=== PATIENT | male | born 1985 | race Caucasian/White ===

== ENCOUNTER 2020-01-05 17:09 | Emergency (ER) | payer BC, SELFPAY ==
[2020-01-05 17:18] VITALS: BP 152/96; PULSE 85; RESP 16; TEMP 37.3; O2SAT 99
--- NOTE | 2020-01-05 17:34 | ED.GENADULT ---
HPI - General Adult General Chief complaint: Upper Respiratory Infection Stated complaint: Pressure in eyes and forhead Time Seen by Provider: 01/05/20 17:34 Source: patient Mode of arrival: ambulatory Limitations: no limitations History of Present Illness HPI narrative: 34-year-old male patient presents to the [facility] with complaints of congestion for the past week. Denies any fevers or body aches. Denies any ear pain. Patient states he has a lot of pressure behind the eyes as well as his forehead and nasal congestion. Denies any runny nose or stuffy nose. Denies any sore throat or coughing. Denies any chest pain or shortness of breath. Patient denies taking anything for his symptoms. Patient states he did get some Afrin today but was unsure how to use it so he did not use it. Related Data Allergies Allergy/AdvReac Type Severity Reaction Status Date / Time No Known Allergies Allergy Unverified 02/13/16 15:59 Review of Systems Review of Systems: Narrative: CONSTITUTIONAL: Denies fever, chills, or sweats. EYES: Denies visual changes, redness, or discharge. ENT: Denies rhinorrhea, positive congestion, denies sore throat, or otalgia. CARDIOVASCULAR: Denies chest pain, palpitations, or edema. RESPIRATORY: Denies cough or dyspnea. GASTROINTESTINAL: Denies abdominal pain, nausea, vomiting, or diarrhea. GENITOURINARY: Denies dysuria or hematuria. SKIN: Denies rash or itching. MUSCULOSKELETAL: Denies back pain, joint pain, or myalgia. NEUROLOGIC: Denies headache, numbness, or weakness. PSYCHIATRIC: Denies anxiety or depression. PMFSH Comments At the time of my signature I agree with nursing past medical history, surgical, social, and family history. There is no relevant family history pertinent to the presenting complaint. Exam Narrative: Exam Narrative: GENERAL: Well-appearing, well-nourished, and in no acute distress. HEAD: Normocephalic, atraumatic. Tenderness noted to frontal sinuses on palpation EYES: PERRLA and EOMI. ENT: Nares with erythema and edema noted bilaterally, no rhinorrhea or epistaxis. Mucous membranes moist. Posterior pharynx with no erythema, tonsillar edema, exudates or lesions present. Bilateral TMs are clear no erythema or foreign bodies in the canal. NECK: Supple. No lymphadenopathy CHEST: Clear to auscultation. No respiratory distress. HEART: Regular rate and rhythm. No murmur heard. Normal peripheral pulses. ABDOMEN: Soft, nontender, nondistended, normal active bowel sounds. EXTREMITIES: Normal range of motion. No edema. SKIN: Warm, dry, no rash. NEURO: No focal deficits. Alert and oriented x3. Course Vital Signs Vital signs: Vital Signs Temperature 37.3 C 01/05/20 17:18 Pulse Rate 85 01/05/20 17:18 Respiratory Rate 16 01/05/20 17:18 Blood Pressure 152/96 H 01/05/20 17:18 Pulse Oximetry 99 01/05/20 17:18 Temperature 37.3 C 01/05/20 17:18 Pulse Rate 85 01/05/20 17:18 Respiratory Rate 16 01/05/20 17:18 Blood Pressure 152/96 H 01/05/20 17:18 Pulse Oximetry 99 01/05/20 17:18 Vital signs reviewed. The patient has been informed that they may have pre-hypertension or Hypertension based on a BP reading in the department. I recommend that the patient call the primary care provider listed on their discharge instructions or a physician of their choice this week to arrange follow up for further evaluation of possible pre-hypertension or Hypertension Medical Decision Making Differential Diagnosis Differential Diagnosis: Differential diagnosis: Allergic rhinitis, chronic sinusitis, tonsillitis, acute sinusitis, infectious mononucleosis, seasonal influenza, pertussis, diphtheria, meningococcal disease, viral syndrome, viral bronchitis, RSV. Discussed with patient we will go ahead and discharge him home with a daily antihistamine nasal steroid that should help with some of the congestion symptoms. Discussed with him he can also try using [id number] Sudafed for his
== END 2020-01-05 17:47 | disposition home or self-care (01) ==
PROVIDERS: Emergency Provider Nurse Practitioner Family
DX: J01.10 Acute frontal sinusitis, unspecified (principal)
CPT/HCPCS: 99203; G0463

== ENCOUNTER 2021-07-31 12:02 | Emergency (ER) | payer BC, SELFPAY ==
[2021-07-31 12:11] VITALS: BP 163/115; PULSE 102; RESP 16; TEMP 36.4; O2SAT 100
--- NOTE | 2021-07-31 12:25 | ED.URI ---
HPI - URI/Sore Throat General Chief Complaint: Upper Respiratory Infection Stated Complaint: SOB/BUBLING SOUND FROM THROAT Time Seen by Provider: 07/31/21 12:26 Source: patient and RN notes reviewed Mode of arrival: ambulatory Limitations: no limitations History of Present Illness HPI Narrative: 36 yo male presents to the [facility] with C/O SOB and gurgling sound from his throat, Only when he lays down. Denies throat, chest pain abdominal pain. No fevers. Symptoms started Friday night Denies PMH or Surgical HX. 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 Related Data Allergies Allergy/AdvReac Type Severity Reaction Status Date / Time No Known Allergies Allergy Unverified 02/13/16 15:59 Review of Systems Review of Systems: All systems reviewed & are unremarkable except as noted in HPI and below Constitutional: Constitutional: Reports no additional constitutional complaints, Denies chills and Denies fever(s) Eyes: Eyes: Reports no additional eye complaints ENT: Reports system reviewed and no additional complaints, except as documented, Denies vertigo, Denies dizziness, Denies nasal congestion and Denies sore throat Cardiovascular: Cardiovascular: Reports no additional cardiovascular complaints and Denies chest pain Respiratory: Respiratory: Reports as per HPI, Reports cough, Reports dyspnea and Denies wheezing Gastrointestinal: Gastrointestinal: Reports no additional gastrointestinal complaints, Denies abdominal pain, Denies nausea and Denies vomiting Musculoskeletal: Musculoskeletal: Reports no additional musculoskeletal complaints Integumentary/Breasts: Skin/Breast: Reports system reviewed and no additional complaints, except as docu Neurologic: Reports system reviewed and no additional complaints, except as documented Psychiatric: Psychiatric: Reports no additional psychiatric complaints Allergic/Immunologic: Allergic/Immunologic: Reports no additional allergic/immunologic complaints, Denies lip swelling, Denies throat swelling, Denies tongue swelling and Denies wheezing [facility] Past Medical History Medical History (Updated 07/31/21 @ 15:36 by Lisa Cai) No significant medical problems Surgical History Surgical History (Updated 07/31/21 @ 15:36 by Lisa Cai) No history of previous surgery Social History Social History (Updated 07/31/21 @ 15:36 by Lisa Cai) Smoking status: Never smoker Alcohol intake: former Substance use: never Living arrangements: with family Occupation/Education: occupation Gender identity (if verbalized by the patient): Male Comments At the time of my signature, I reviewed and agree with the nursing past medical, surgical, social, and family history. There is no relevant family history pertinent to the patient complaint. Exam Const: General: healthy appearing, no acute distress and alert Nutritional Appearance: well nourished Orientation/consciousness: patient oriented x3 Limitations: no limitations HENMT: Head: normal to inspection Ears: external ears normal, TM's normal bilaterally and EAC's normal General nose exam: Normal external nose present and Normal nasal mucous membranes and turbinates present Face and sinus: normal facial exam, sinuses nontender and face symmetric Mouth: Yes Normal oral and palatal mucosa present, Yes lip normal and Yes tongue normal Throat: tonsils normal, uvula midline and postnasal drainage Eyes: Conjunctivae: conjunctivae normal Pupils: Equal, round and reactive pupils present Direct Ophthalmoscopy: no photophobia Neck: Neck: normal visual inspection, no lymphadenopathy and no meningeal signs Chest: Chest palpation & inspection: normal inspection of the chest Resp: Effort & Inspection: normal respiratory effort and no use of accessory muscles Auscultation: clear to auscultation bilaterally, no crackles, no rales, no rhonchi and no wheezes Cardio: Rate: regular rate Rhythm: regular rhythm GI: GI Palp: Yes Soft to palpation and No Ten
== END 2021-07-31 12:57 | disposition home or self-care (01) ==
PROVIDERS: Emergency Provider Nurse Practitioner
DX: R09.82 Postnasal drip (principal)
CPT/HCPCS: 99213; G0463

== ENCOUNTER 2021-08-08 19:03 | Inpatient (IN) | payer BC, SELFPAY ==
--- NOTE | ~2021-08-08 | XR_ITS ---
EXAMINATION: XR chest 2V DATE: 08/08/2021 19:34 INDICATION: Shortness of breath and cough TECHNIQUE: PA and lateral views of the chest are obtained. COMPARISON: 11/24/2006 FINDINGS: The lungs are free of acute opacities. There is no pleural effusion or pneumothorax. The ca rdiac silhouette is enlarged. The visualized bones and soft tissues are unremarkable. IMPRESSION: 1. Enlargement of the cardiac silhouette which may be due to cardiomegaly and/or pericardial effusion . Reviewed, dictated and finalized at location A. IMPRESSION: 1. Enlargement of the cardiac silhouette which may be due to cardiomegaly and/o r pericardial effusion.
[2021-08-08 19:13] VITALS: BP 159/120; PULSE 109; RESP 14; TEMP 36.8; O2SAT 100
--- NOTE | 2021-08-08 19:13 | ECG_ITS ---
Measurements Intervals [place] Rate: 107 P: 77 NC: 172 QRS: -76 QRSD: 121 T: 83 QT: 352 QTc: 472 Interpretive Statements SINUS TACHYCARDIA POSSIBLE LEFT ATRIAL ENLARGEMENT LEFT ANTERIOR FASCICULAR BLOCK LEFT VENTRICULAR HYPERTROPHY AND ST-T CHANGE CANNOT RULE OUT SEPTAL INFARCT, AGE INDETERMINATE ABNORMAL ECG Electronically Signed On 08-08-2021 20:16:21 CDT by Thien Malik D.O.
[2021-08-08 19:37] LABS: Basophils Percent Auto 0.4 % (0.2-1.2); Eosinophils Absolute Auto 0.2 K/mm3 (0-0.3); Eosinophils Percent Auto 1.4 % (0-4.4); Hematocrit 47.4 % (42.0-52.0); Hemoglobin 15.6 g/dL (14.0-18.0); Immature Granulocyte Absolute 0.03 K/mm3 (0.00-0.031); Immature Granulocyte Percent A 0.3 % (0-0.5); Lymphocytes Absolute Auto 3.54 K/mm3 (0.9-3.2); Lymphocytes Percent Auto 31.1 % (18.3-44.2); Mean Corpuscular HGB Conc 32.9 g/dl (32-36); Mean Corpuscular Hemoglobin 29.6 pg (26-34); Mean Corpuscular Volume 89.9 fl (80-100); Mean Platelet Volume 10.7 fl (7.4-10.4); Monocytes Absolute Auto 0.8 K/mm3 (0.1-0.6); Monocytes Percent Auto 6.8 % (2.6-8.5); Neutrophils Absolute Auto 6.8 K/mm3 (1.3-6.7); Platelet Count Result 280 k/mm3 (150-375); Red Blood Count 5.27 M/mm3 (4.6-6.20); Red Cell Distribution Width 13.1 % (11.5-14.5); White Blood Count 11.4 K/mm3 (4.5-10.0)
[2021-08-08 19:46] LABS: INR 1.2; Partial Thromboplastin Time 29.4 SECONDS (22.3-36.8); Prothrombin Time 15.1 Seconds (11.1-14.7)
[2021-08-08 19:48] LABS: Anion Gap 12 mmol/L (8-16); Blood Urea Nitrogen 18 mg/dL (9-20); Calcium 8.9 mg/dL (8.4-10.2); Carbon Dioxide 25 mmol/L (22-30); Chloride 102 mmol/L (98-107); Estimated CRCL calculation 100 ml/min; Estimated Glomerular Filt Rate > 60; Glucose 147 mg/dL (65-110); Potassium 4.4 mmol/L (3.4-5.0); Sodium 139 mmol/L (137-145)
[2021-08-08 19:59] LABS: NT Pro B Type Natriuretic Pept 6160 pg/mL (5-100); Troponin I 0.027 ng/mL (0.000-0.034)
[2021-08-08 21:27] VITALS: BP 163/125; PULSE 107; RESP 24; O2SAT 98
--- NOTE | 2021-08-08 21:32 | ED.GENADULT ---
HPI - General Adult General Chief complaint: Unspecified Stated complaint: cough, feet swelling, N/V Time Seen by Provider: 08/08/21 21:14 Source: patient and RN notes reviewed Mode of arrival: ambulatory Limitations: no limitations History of Present Illness HPI narrative: Patient is 36 years old white male presented to the ED with swelling of the feet, ankles, dry cough and shortness of breath on exertion over the last 7 days. Patient denies any fever, chills, nausea, vomiting, chest pain. Patient denies any Covid infection or Covid vaccination. Patient uses meth every now and then. Last use was at least 4 months ago. 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 Patient denies any symptoms of viral infection for years. Related Data Allergies Allergy/AdvReac Type Severity Reaction Status Date / Time No Known Allergies Allergy Unverified 02/13/16 15:59 Review of Systems Review of Systems: CONSTITUTIONAL: Denies fever, chills, or sweats. EYES: Denies visual changes, redness, or discharge. ENT: Denies rhinorrhea, congestion, sore throat, or otalgia. CARDIOVASCULAR: Denies chest pain, palpitations, or edema. RESPIRATORY: Denies cough or dyspnea. GASTROINTESTINAL: Denies abdominal pain, nausea, vomiting, or diarrhea. GENITOURINARY: Denies dysuria or hematuria. SKIN: Denies rash or itching. MUSCULOSKELETAL: Denies back pain, joint pain, or myalgia. NEUROLOGIC: Denies headache, numbness, or weakness. PSYCHIATRIC: Denies anxiety or depression. PMFSH Past Medical History Medical History No significant medical problems Surgical History Surgical History No history of previous surgery Social History Social History Smoking status: Never smoker Alcohol intake: former Substance use: never Gender identity (if verbalized by the patient): Male Exam Narrative: General appearance: Well-developed, well-nourished Skin: Normal color, 1+ edema lower extremity bilaterally up to the mid lower legs Head: Normocephalic, nontraumatic Eyes: Clear conjunctiva ENT: Oropharynx normal, ears normal, nose normal Neck: Supple, nontender Chest and respiratory: Airway patent, no respiratory distress, no accessory muscle use Heart: Tachycardia Abdomen: Soft, nontender, no organomegaly, quiet bowel sounds Vascular: Normal peripheral pulses, normal capillary refill. Musculoskeletal: Normal range of motion, nontender back Neurologic: Alert and oriented ?3, OLIVE GRADER is normal as tested, no gross motor deficit Course Consultations Consultation #1: Dr. Kay Date: 08/08/21 Time: 22:12 Time: 22:12 Vital Signs Vital signs: Vital Signs Temperature 36.8 C 08/08/21 19:13 Pulse Rate 109 H 08/08/21 19:13 Respiratory Rate 14 08/08/21 19:13 Blood Pressure 159/120 H 08/08/21 19:13 Pulse Oximetry 100 08/08/21 19:13 Temperature 36.8 C 08/08/21 19:13 Pulse Rate 105 H 08/08/21 22:42 Respiratory Rate 20 08/08/21 22:42 Blood Pressure 159/117 H 08/08/21 22:42 Pulse Oximetry 96 08/08/21 22:42 Medical Decision Making MDM Narrative Medical decision making narrative: Patient presents with shortness of breath and leg edema. Differential diagnosis as below. Labs, EKG, chest x-ray ordered. Work-up showed that the patient have cardiomegaly, congestive heart failure. Patient is methamphetamine user, last use was over 4 months ago. Patient also work with heavy metals which could have something to do with his cardiomegaly or idiopathic. Patient blood pressure
[2021-08-08 21:33] LABS: Alanine Aminotransferase 54 U/L (4-50); Albumin Level 4.3 g/dL (3.5-5.1); Alkaline Phosphatase 60 U/L (38-126); Aspartate Amino Transferase 30 U/L (17-59); Bilirubin,Total 0.9 mg/dL (0.2-1.3)
[2021-08-08] MEDS: FUROSEMIDE INJ 100 MG/10 ML VIAL 80 MG IV PUSH (22:05)
[2021-08-08] MEDS: NITROGLYCERIN OINTMENT 1 INCH DOSE TRANSDERM (22:07)
[2021-08-08 22:42] VITALS: BP 159/117; PULSE 105; RESP 20; O2SAT 96
[2021-08-08 22:51] LABS: CRP 1.1 mg/dL (<1.0)
[2021-08-08 22:55] LABS: Amphetamine Screen Urine Positive (Negative); Barbiturate Screen Urine Negative (Negative); Benzodiazepines Screen Urine Negative (Negative); Cannabinoid Screen Urine Negative (Negative); Cocaine Screen Urine Negative (Negative); Methadone Screen Urine Negative (Negative); Opiate Screen Urine Negative (Negative); Phencyclidine Screen Urine Negative (Negative)
[2021-08-08 23:03] LABS: Add Urine Microscopic? YES; Appearance Urine Clear (Clear); Bilirubin Urine Negative (Negative); Blood Urine Negative (Negative); Color Urine Straw (Yellow); Glucose Urine UA Negative (Negative); Ketones Urine Negative (Negative); Leukocyte Esterase Ur Negative LEU/UL (Negative); Nitrate Urine Negative (Negative); Protein Urine Negative (Negative); RBC Urine 0-2 /hpf (0-2); Specific Grav Ur 1.008 (1.001-1.035); WBC Urine 0-3 /hpf
[2021-08-08 23:04] LABS: Erythrocyte Sedimentation Rate 4 mm/hr (0-20)
[2021-08-08 23:18] VITALS: BMI 28.5
--- NOTE | 2021-08-08 23:36 | PM.IMHP ---
H&P: HPI History of Present Illness Date/Time: 08/08/21 23:36 Chief Complaint: Shortness of breath Narrative: This is a 36-year-old male with no significant past medical history former smoker, former alcohol abuse, uses methamphetamines, patient presented to the emergency room due to swelling of his feet shortness of breath and dry cough PND and orthopnea for the last week and such however he denies any chest pain ,any dizziness, any nausea ,any vomiting, any abdominal pain ,any pounding of the chest, no fevers no rigors no chills no sputum production. Preliminary workup was significant for a brain natriuretic peptide up beltran 6000, a positive urine tox for amphetamines a chest x-ray with enlarged cardiac silhouette and and ECG with changes but no previous for comparison. Patient has been placed in observation for further evaluation and treatment. Review of Systems Review of Systems: Bilateral lower extremity ankle swelling shortness of breath dry cough PND and orthopnea Constitutional: Constitutional: Denies chills, Denies fatigue, Denies fever(s), Denies lethargy, Denies night sweats and Denies weakness Eyes: Eyes: Denies change in vision ENT: Denies dysphagia, Denies dizziness, Denies nasal congestion, Denies nasal discharge and Denies nasal obstruction Cardiovascular: Cardiovascular: Denies chest pain, Denies chest pain at rest, Denies rapid heart rate, Reports pedal edema, Denies irregular heart rhythm, Denies claudication, Denies lightheadedness, Denies radiating jaw, neck or arm pain, Denies palpitations, Reports dyspnea, Reports dyspnea on exertion, Reports orthopnea and Reports paroxysmal nocturnal dyspnea Respiratory: Respiratory: Reports cough Gastrointestinal: Gastrointestinal: Denies abdominal pain, Denies dyspepsia, Denies heartburn, Denies diarrhea and Denies vomiting Genitourinary: Genitourinary: Reports no additional male genitourinary complaints Musculoskeletal: Musculoskeletal: Reports no additional musculoskeletal complaints Integumentary/Breasts: Skin/Breast: Reports system reviewed and no additional complaints, except as docu Neurologic: Reports system reviewed and no additional complaints, except as documented Psychiatric: Psychiatric: Reports no additional psychiatric complaints Endocrine: Endocrine: Reports no additional endocrine complaints Hematologic/Lymphatic: Hematologic/Lymphatic: Reports no additional hematologic/lymphatic complaints Allergic/Immunologic: Allergic/Immunologic: Reports no additional allergic/immunologic complaints PMFSH Past Medical History Medical History No significant medical problems Surgical History Surgical History No history of previous surgery Social History Social History Smoking status: Never smoker Alcohol intake: never Substance use: current Substance use type: amphetamines Other substance usage details: Pt states he doesnt have a problem , tox screen positive for amphetamines Gender identity (if verbalized by the patient): Male Spiritual care concerns: No Meds Home Medications and Allergies Home Medications Medication Instructions Recorded Confirmed Type No Home Medications 08/09/21 08/09/21 History Allergies Allergy/AdvReac Type Severity Reaction Status Date / Time No Known Allergies Allergy Verified 08/09/21 01:20 Vital Signs Vital Signs - 24 hr 08/08/21 19:13 08/08/21 21:27 08/08/21 22:42 Temperature 98.2 F Pulse Rate 109 H 107 H 105 H Respiratory Rate 14 24 H 20 Blood Pressure 159/120 H 163/125 H 159/117 H Pulse Oximetry 100 98 96 Exam Narrative: Laying in gurney Const: General: cooperative, comfortable, no acute distress, well developed, alert, awake and other (Well-appearing) Nutritional Appearance: average body habitus Orientation/consciousne
[2021-08-08] MEDS: FUROSEMIDE INJ 40 MG/4 ML VIAL IV PUSH (23:55)
[2021-08-08] MEDS: MORPHINE SULFATE (*CRX) 2 MG/ML INJ 1 MG IV PUSH (23:55)
[2021-08-09] VITALS (14 sets, daily range): BP systolic 135–167; BP diastolic 94–131; PULSE 87–107; RESP 14–28; TEMP 35.7–36.9; O2SAT 96–98
[2021-08-09 01:20] LABS: Anion Gap 10 mmol/L (8-16); Blood Urea Nitrogen 18 mg/dL (9-20); Calcium 9.1 mg/dL (8.4-10.2); Carbon Dioxide 33 mmol/L (22-30); Chloride 97 mmol/L (98-107); Estimated CRCL calculation 92 ml/min; Estimated Glomerular Filt Rate > 60; Glucose 192 mg/dL (65-110); Magnesium 2.3 mg/dL (1.6-2.3); Phosphorus 4.5 mg/dL (2.5-4.5); Potassium 3.8 mmol/L (3.4-5.0); Sodium 140 mmol/L (137-145)
[2021-08-09 01:32] LABS: Troponin I 0.026 ng/mL (0.000-0.034)
[2021-08-09] MEDS: LORazepam INJ (*CRX) 2 MG/ML VIAL 1 MG IV PUSH ×2 (01:41→12:05)
[2021-08-09] MEDS: diphenhydrAMINE HCl INJ 50 MG/ML VIAL 25 MG IV PUSH ×2 (01:41→12:05)
--- NOTE | 2021-08-09 06:00 | ECG_ITS ---
Measurements Intervals [place] Rate: 87 P: 64 MS: 168 QRS: -73 QRSD: 126 T: 65 QT: 423 QTc: 511 Interpretive Statements SINUS RHYTHM LEFT ATRIAL ENLARGEMENT LEFT ANTERIOR FASCICULAR BLOCK LEFT VENTRICULAR HYPERTROPHY ABNORMAL ECG Electronically Signed On 08-09-2021 6:51:24 CDT by Thien Malik D.O.
--- NOTE | 2021-08-09 06:00 | ECHO_ITS ---
Patient Info Name: Omar Barahona Age: 36 years : 1985 Gender: Male Ht: 75 in Wt: 227 lbs BSA: 2.35 m2 HR: 97 bpm BP: 150 / 94 mmHg Technical Quality: Good Exam Date: 08/09/2021 9:20 AM Exam Location: [facility] Patient Status: Inpatient Admit Date: 08/08/2021 Staff Ordering Physician: Nicholas Fink MD Gasoline Engine Inspector: Saima Mercado RDCS Attending Provider: Ryan Fuentes MD Exam Type: CA echo dop color flow w con Study Info Indications I42.9 - Cardiomyopathy, unspecified Complete two-dimensional, color flow and Doppler transthoracic echocardiogram is performed with contrast to opacify the left ventricle and to improve the deliniation of the left ventricle endocardial borders. Contrast/Agitated Saline Contrast/Ag. Saline: Definity Amount: 2.00 ml Administered By: Renata Monroy RN Existing IV Access: Yes IV Access Condition: patent with no signs of infiltration Summary 1. Left ventricular systolic function is severely reduced, estimated at 15-20%. 2. Left ventricular chamber dimension is mildly enlarged. 3. The left ventricular diastolic function is grade III diastolic dysfunction. 4. E/e' 35.00 is elevated. 5. Right ventricular chamber dimension is mildly enlarged. 6. Right ventricular systolic function is reduced. 7. Left atrial chamber dimension is mildly enlarged. 8. Right atrial chamber dimension is mildly enlarged. 9. There is mild aortic valve sclerosis. 10. There is mild aortic valve regurgitation. 11. There is mild mitral valve regurgitation. 12. There is mild tricuspid valve regurgitation. 13. Mild pulmonary hypertension, estimated pulmonary arterial systolic pressure is 45 mmHg. Left Ventricle Left ventricular chamber dimension is mildly enlarged. Left ventricular systolic function is severely reduced, estimated at 15-20%. There is no increased left ventricular wall thickness. Left ventricular septal wall motion is normal. The left ventricular diastolic function is grade III diastolic dysfunction. E/e' 35.00 is elevated. Global longitudinal strain is abnormal at -4 %. Right Ventricle Right ventricular chamber dimension is mildly enlarged. Right ventricular systolic function is reduced. Left Atria Left atrial chamber dimension is mildly enlarged. Right Atria Right atrial chamber dimension is mildly enlarged. Atrial Septum Intact interatrial septum visualized by color flow imaging. Aortic Valve The aortic valve is trileaflet. There is mild aortic valve sclerosis. There is no aortic valve stenosis. There is mild aortic valve regurgitation. Pulmonic Valve The pulmonic valve is normal. There is no pulmonic valve stenosis. There is no pulmonic regurgitation. Mitral Valve The mitral valve has normal leaflets. There is no mitral valve stenosis. There is mild mitral valve regurgitation. Tricuspid Valve The tricuspid valve leaflets are normal. There is no significant tricuspid valve stenosis. There is mild tricuspid valve regurgitation. Mild pulmonary hypertension, estimated pulmonary arterial systolic pressure is 45 mmHg. Pericardium/Pleural The pericardium appears normal. There is no pericardial effusion. Inferior Vena Cava Normal inferior vena cava with <50% collapse upon inspiration consistent with elevated right atrial pressure, 10 mmHg. Aorta The aortic root size at the sinus of Valsalva is normal. The prox ascending a
[2021-08-09] MEDS: NITROGLYCERIN OINTMENT 1 INCH DOSE TRANSDERM ×4 (06:51→23:55)
[2021-08-09] MEDS: FUROSEMIDE INJ 40 MG/4 ML VIAL 20 MG IV PUSH (08:48)
--- NOTE | 2021-08-09 09:26 | PM.CNCAR ---
Assessment and Plan Assessment and plan (1) Congestive heart failure due to cardiomyopathy: Code(s): I50.9 - Heart failure, unspecified; I42.9 - Cardiomyopathy, unspecified <BAL Quintana - Last Filed: 08/09/21 12:42> Status: Acute <BAL Quintana - Last Filed: 08/09/21 12:42> Assessment and Plan: Presenting with symptoms of shortness of breath, lower extremity swelling. Chest Xray showed enlarged cardiac silhouette, cardiomegaly vs. pericardial effusion. NT-proBNP elevated at 6160. He has been diuresed with IV lasix and has experienced improvement in symptoms. Suspect dilated CMY, possible right sided failure as well likely caused by history of alcohol abuse and current methamphetamine use Echo pending Continue diuresis with 20mg IV furosemide b.i.d. Further recommendations to follow review of echo results <BAL Quintana - Last Filed: 08/09/21 12:42> (2) Hypertension: Qualifiers: Hypertension type: unspecified Qualified Code(s): I10 - Essential (primary) hypertension <BAL Quintana - Last Filed: 08/09/21 12:42> Code(s): I10 - Essential (primary) hypertension <BAL Quintana - Last Filed: 08/09/21 12:42> Status: Acute <BAL Quintana - Last Filed: 08/09/21 12:42> Assessment and Plan: Above goal. Will likely add antihypertensives with HF medical regimen. Further recommendations to follow. <BAL Quintana - Last Filed: 08/09/21 12:42> (3) Methamphetamine use: Code(s): F15.10 - Other stimulant abuse, uncomplicated <BAL Quintana - Last Filed: 08/09/21 12:42> Status: Acute <BAL Quintana - Last Filed: 08/09/21 12:42> Assessment and Plan: He was counseled on avoidance of amphetamines and other illicit drugs <BAL Quintana - Last Filed: 08/09/21 12:42> Additional Plan Addendum Patient seen and examined, chart reviewed. DIAL for 2 weeks with nocturnal cough and lower extremity edema. Untreated hypertension since he was in his 20s. Methamphetamine use. Exam shows a gallop rhythm and mild peripheral edema. Has four-chamber cardiac enlargement by echo with EF 15-20%. Chest x-ray was personally reviewed, showed cardiomegaly and surprisingly no pulmonary vascular congestion. EKG personally reviewed showed sinus rhythm with LVH and left anterior hemiblock. Agree with nurse practitioner Kalani Torres's assessment and plan. Reviewed causes of cardiomyopathy (untreated hypertension, methamphetamine use, viral/idiopathic. (No family history of cardiomyopathy, doubt CAD.) wiith patient. Counseled patient on treatment, risk of sudden cardiac , Life Vest, effects of methamphetamines and other drugs on the heart, etc. patient states he will not use methamphetamines any longer. Quintin Monte MD <Yesi Monte MD - Last Filed: 08/09/21 17:29> History of Present Illness History of Present Illness Consult date/time: 08/09/21 09:26 <BAL Quintana - Last Filed: 08/09/21 12:42> Requesting physician: Ryan Fuentes MD <BAL Quintana - Last Filed: 08/09/21 12:42> Reason For Visit: CHF, hypertension <BAL Quintana - Last Filed: 08/09/21 12:42> Narrative: Mr. Barahona is a 36-year-old male who I am seeing at the request of Dr. Fuentes for congestive heart failure. This is a patient with no significant medical history who presented to the emergency department yesterday evening for evaluation of a 2 week complaint of shortness of breath. Patient says that 2 Sundays ago he had an acute onset of shortness of breath. He says that his breathing improved spontaneously throughout the week therefore he did not think much of it. His shortness of breath returned as well as what he describes as some crackling sounds in his throat and a productive cough - he proceeded to an urgent care and was diagnose
[2021-08-09] MEDS: PERFLUTREN LIPID MICROSPHERES 1.5 ML VIAL DILUTED TO 10 ML TOTAL VOLUME (11:57)
--- NOTE | 2021-08-09 14:17 | PM.IMPN ---
Progress Note: A&P Assessment and Plan (1) Congestive heart failure of unknown etiology: Code(s): I50.9 - Heart failure, unspecified Status: Acute Assessment and Plan: Admit to chest pain center Echocardiogram in the morning Rule out [place] with serial troponins Cardiology consult Aggressive diuresis Monitor intake and output 08/09 Interval history: patient is a 36-year-old male with history of alcohol abuse and amphetamine presented emergency depart with complaint of shortness of breath and chest apin and was found to have BNP of 6,160 patient is seen by Cardiology had a echo showed severe reduced ejection fraction of 20%, started the patient on Entresto, spironolactone and Coreg patient also been diuresed with IV Lasix, patient will need LifeVest upon discharge, patient is positive for amphetamine and was quite agitated and is given Ativan and currently somnolent unable to provide any review of symptom, once clinically stable will have a PT OT evaluate the patient and further recommendation to follow (2) Methamphetamine use: Code(s): F15.10 - Other stimulant abuse, uncomplicated Status: Acute Assessment and Plan: Patient has been advised about substance use cessation He has expressed understanding Supportive care Subjective Date/time seen: 08/09/21 14:17 This is a 36-year-old male with no significant past medical history former smoker, former alcohol abuse, uses methamphetamines, patient presented to the emergency room due to swelling of his feet shortness of breath and dry cough PND and orthopnea for the last week and such however he denies any chest pain ,any dizziness, any nausea ,any vomiting, any abdominal pain ,any pounding of the chest, no fevers no rigors no chills no sputum production. Preliminary workup was significant for a brain natriuretic peptide up beltran 6000, a positive urine tox for amphetamines a chest x-ray with enlarged cardiac silhouette and and ECG with changes but no previous for comparison. Patient has been placed in observation for further evaluation and treatment. 08/09 Interval history: patient is a 36-year-old male with history of alcohol abuse and amphetamine presented emergency depart with complaint of shortness of breath and chest apin and was found to have BNP of 6,160 patient is seen by Cardiology had a echo showed severe reduced ejection fraction of 20%, started the patient on Entresto, spironolactone and Coreg patient also been diuresed with IV Lasix, patient will need LifeVest upon discharge, patient is positive for amphetamine and was quite agitated and is given Ativan and currently somnolent unable to provide any review of symptom, once clinically stable will have a PT OT evaluate the patient and further recommendation to follow Review of Systems Review of Systems: ROS unobtainable: Yes unobtainable due to medical condition Exam Narrative: Patient is comfortable, NAD HEENT: eyes are clear and none icteric LUNGS:Normal respiratory effort ABD: distended Lower extremities: edema SKIN: nonjaundiced Neuro: somnolent. Objective Data Vital Signs Vital Signs: Vital Signs - 24 hr 08/08/21 19:13 08/08/21 21:27 08/08/21 22:42 Temperature 98.2 F Pulse Rate 109 H 107 H 105 H Respiratory Rate 14 24 H 20 Blood Pressure 159/120 H 163/125 H 159/117 H Pulse Oximetry 100 98 96 08/09/21 00:00 08/09/21 02:00 08/09/21 04:00 Temperature 97.6 F 97.6 F Pulse Rate 102 H 88 87 Respiratory Rate 17 28 H Blood Pressure 162/95 H 150/94 H Pulse Oximetry 96 96 08/09/21 06:00 08/09/21 08:00 08/09/21 10:00 Temperature 98.5 F Pulse Rate 91 94 105 H Respiratory Rate 20 Blood Pressure 135/113 H Pulse Oximetry 97 Intake/Output Intake/Output: Intake & Output 08/06/21 08/07/21 08/08/21 08/09/21 23:59 23:59 23:59 23:59 Intake Total 1460 Output Total 1500 4000 Balance -1500 -2540 Meds/Results Medications: Active Medications Generic N
--- NOTE | 2021-08-09 16:28 | PC.NURSE ---
Patient report received from Renata Leroy RN. All questions answered and care of patient assumed.
--- NOTE | 2021-08-09 16:45 | PC.NURSE ---
Patient resting comfortably in bed with no complaints. Denies leg pain/cramps at this time. Continuing to eat dinner. VSS although diastolic blood pressure is high. Patient is asking to go outside to see and children. Patient educated on visitor policy. He voices understanding. Patient provided education on CHF and need for LifeVest. Patient agreeable to LifeVest. Will continue to monitor.
--- NOTE | 2021-08-09 18:26 | PC.NURSE ---
Dr. Malone notified of elevated BP. At time of notification BP 162/118. Order received to give 2100 dose of Coreg now. This applies to the evening dose on 08/09/21 only. Pt denies complaints at this time. Appears to be resting comfortably.
--- NOTE | 2021-08-09 19:09 | PC.NURSE ---
Patient report given to ORLANDO Munoz. All questions answered and care of patient transferred.
[2021-08-09] MEDS: SACUBITRIL/VALSARTAN 24-26 MG TABLET 1 TAB PO (20:36)
[2021-08-09] MEDS: carvediloL 3.125 MG TABLET PO (20:37)
[2021-08-10] VITALS (19 sets, daily range): BP systolic 122–157; BP diastolic 73–122; PULSE 82–159; RESP 11–26; TEMP 35.6–37.1; O2SAT 94–98
[2021-08-10] MEDS: NITROGLYCERIN OINTMENT 1 INCH DOSE TRANSDERM (05:32)
[2021-08-10 06:37] LABS: Anion Gap 9 mmol/L (8-16); Blood Urea Nitrogen 18 mg/dL (9-20); Calcium 8.6 mg/dL (8.4-10.2); Carbon Dioxide 23 mmol/L (22-30); Chloride 105 mmol/L (98-107); Estimated CRCL calculation 109 ml/min; Estimated Glomerular Filt Rate > 60; Glucose 185 mg/dL (65-110); Potassium 4.4 mmol/L (3.4-5.0); Sodium 137 mmol/L (137-145)
[2021-08-10] MEDS: SACUBITRIL/VALSARTAN 24-26 MG TABLET 1 TAB PO ×2 (08:21→20:00)
[2021-08-10] MEDS: carvediloL 3.125 MG TABLET PO (08:21)
[2021-08-10] MEDS: FUROSEMIDE INJ 40 MG/4 ML VIAL 20 MG IV PUSH ×2 (08:22→20:01)
[2021-08-10] MEDS: SPIRONOLACTONE 25 MG TABLET PO (08:55)
--- NOTE | 2021-08-10 09:44 | ECG_ITS ---
Measurements Intervals [place] Rate: 155 P: VT: 0 QRS: -76 QRSD: 118 T: 83 QT: 307 QTc: 494 Interpretive Statements SUPRAVENTRICULAR TACHYCARDIA, CONSIDER ATRIAL FLUTTER LEFT AXIS DEVIATION INCOMPLETE LEFT BUNDLE BRANCH BLOCK CANNOT RULE OUT SEPTAL INFARCT, AGE INDETERMINATE INFERIOR INFARCT, AGE INDETERMINATE BORDERLINE ST-T WAVE ABNORMALITY- HIGH LATERAL LEADS ABNORMAL ECG Electronically Signed On 08-10-2021 17:01:18 CDT by Thien Malik D.O.
[2021-08-10] MEDS: METOPROLOL TARTRATE INJ 5 MG/5 ML VIAL IV PUSH ×3 (09:59→14:40)
--- NOTE | 2021-08-10 10:23 | PM.PNCARD ---
Progress Note: A&P Assessment and Plan (1) Congestive heart failure due to cardiomyopathy: Code(s): I50.9 - Heart failure, unspecified; I42.9 - Cardiomyopathy, unspecified Status: Acute Assessment and Plan: Presenting with symptoms of shortness of breath, lower extremity swelling. Chest Xray showed enlarged cardiac silhouette, cardiomegaly vs. pericardial effusion. NT-proBNP elevated at 6160. He has been diuresed with IV lasix and has experienced improvement in symptoms. Severe dilated cardiomyopathy with an EF of 15-20%, grade 3 diastolic dysfunction. He has right ventricular dysfunction as well. Continue Entresto 24/ b.i.d. Continue spironolactone 25 mg daily Increase carvedilol to 6.25 mg b.i.d.. Transition from furosemide 20 mg IV b.i.d. to 40 mg p.o. b.i.d. Monitor renal function and electrolytes with daily BMP. Goals K 4.0, Mg 2.0 LifeVest has been ordered. Per [facility], patient will receive his LifeVest this evening Recurrence of atrial flutter this afternoon. ? need for anticoagulation. Will observe overnight on telemetry. (2) Hypertension: Qualifiers: Hypertension type: unspecified Qualified Code(s): I10 - Essential (primary) hypertension Code(s): I10 - Essential (primary) hypertension Status: Acute Assessment and Plan: Has been somewhat better controlled since initiating GDMT for his heart failure. Increase carvedilol to 6.25 mg b.i.d. today. (3) Methamphetamine use: Code(s): F15.10 - Other stimulant abuse, uncomplicated Status: Acute Assessment and Plan: He was counseled on avoidance of amphetamines and other illicit drugs. He states that he is going to remain abstinent from drugs and alcohol. Subjective Date/time seen: 08/10/21 10:23 cardiology follow-up for heart failure Date of service 08/10/2021: Had an episode of atrial flutter earlier this morning with a rate in the 150s. This happened after having a difficult conversation with his mom on the phone that made him very upset. He was asymptomatic with this. Was given 2 doses of IV Lopressor and now is in sinus rhythm with a rate in the 80s. He is feeling well today. Has a cough but denies shortness of breath. Review of Systems Review of Systems: All systems reviewed & are unremarkable except as noted in HPI and below Constitutional: Constitutional: Denies excessive sweating, Denies fatigue, Denies headache(s), Denies lethargy and Denies weakness Eyes: Eyes: Denies change in vision ENT: Reports Normal hearing present, Denies headache(s) and Reports nasal discharge Cardiovascular: Cardiovascular: Denies chest pain, Reports pedal edema, Reports leg edema, Denies lightheadedness, Denies palpitations, Reports dyspnea and Reports dyspnea on exertion Respiratory: Respiratory: Reports chest congestion, Reports cough, Reports dyspnea and Reports dyspnea on exertion Gastrointestinal: Gastrointestinal: Denies abdominal pain, Denies constipation, Denies diarrhea and Reports nausea Genitourinary: Genitourinary: Denies dysuria Musculoskeletal: Musculoskeletal: Denies back pain and Denies numbness Integumentary/Breasts: Skin/Breast: Denies unusual bruising Neurologic: Reports Normal hearing present, Denies confusion, Denies headache(s), Denies numbness and Denies weakness Psychiatric: Psychiatric: Denies anxiety, Denies confusion and Denies depression Endocrine: Endocrine: Denies excessive sweating, Denies fatigue, Denies flushing and Denies palpitations Hematologic/Lymphatic: Hematologic/Lymphatic: Denies easy bleeding and Denies easy bruising Exam Const: General: comfortable and no acute distress; No confusion Orientation/consciousness: No confusion HENMT: Head: normal to inspection Eyes: General: appearance normal, both eyes and all related structures Neck: Neck: supple and no JVD Resp: Effort & Inspection: normal respiratory effort Auscultation: clear to ausc
[2021-08-10 14:02] LABS: Hematocrit 50.7 % (42.0-52.0); Hemoglobin 16.6 g/dL (14.0-18.0); Mean Corpuscular HGB Conc 32.7 g/dl (32-36); Mean Corpuscular Hemoglobin 29.9 pg (26-34); Mean Corpuscular Volume 91.4 fl (80-100); Mean Platelet Volume 11.3 fl (7.4-10.4); Platelet Count Result 293 k/mm3 (150-375); Red Blood Count 5.55 M/mm3 (4.6-6.20); White Blood Count 10.8 K/mm3 (4.5-10.0)
--- NOTE | 2021-08-10 16:53 | PM.IMPN ---
Progress Note: A&P Assessment and Plan (1) Congestive heart failure of unknown etiology: Code(s): I50.9 - Heart failure, unspecified Status: Acute Assessment and Plan: Admit to chest pain center Echocardiogram in the morning Rule out [place] with serial troponins Cardiology consult Aggressive diuresis Monitor intake and output 08/10/21 16:53 08/09 Interval history: patient is a 36-year-old male with history of alcohol abuse and amphetamine presented emergency depart with complaint of shortness of breath and chest apin and was found to have BNP of 6,160 patient is seen by Cardiology had a echo showed severe reduced ejection fraction of 20%, started the patient on Entresto, spironolactone and Coreg patient also been diuresed with IV Lasix, patient will need LifeVest upon discharge, patient is positive for amphetamine and was quite agitated and is given Ativan and currently somnolent unable to provide any review of symptom, once clinically stable will have a PT OT evaluate the patient and further recommendation to follow. 08/10 Interval history: no today patient is more awake however is crying and wants to go home, patient and several episodes Vtech, patient was seen by Cardiology was treated with Lopressor and was decided to monitor the patient overnight, LifeVest has been ordered however patient insurance company has denied, will continue to monitor patient over night and further recommendations follow (2) Methamphetamine use: Code(s): F15.10 - Other stimulant abuse, uncomplicated Status: Acute Assessment and Plan: Patient has been advised about substance use cessation He has expressed understanding Supportive care Subjective Date/time seen: 08/10/21 16:53 08/09 Interval history: patient is a 36-year-old male with history of alcohol abuse and amphetamine presented emergency depart with complaint of shortness of breath and chest apin and was found to have BNP of 6,160 patient is seen by Cardiology had a echo showed severe reduced ejection fraction of 20%, started the patient on Entresto, spironolactone and Coreg patient also been diuresed with IV Lasix, patient will need LifeVest upon discharge, patient is positive for amphetamine and was quite agitated and is given Ativan and currently somnolent unable to provide any review of symptom, once clinically stable will have a PT OT evaluate the patient and further recommendation to follow. 08/10 Interval history: no today patient is more awake however is crying and wants to go home, patient and several episodes Vtech, patient was seen by Cardiology was treated with Lopressor and was decided to monitor the patient overnight, LifeVest has been ordered however patient insurance company has denied, will continue to monitor patient over night and further recommendations follow Review of Systems Review of Systems: All systems reviewed & are unremarkable except as noted in HPI and below Exam Narrative: Patient is comfortable, NAD HEENT: eyes are clear and none icteric LUNGS:Normal respiratory effort ABD: distended Lower extremities: edema SKIN: nonjaundiced Neuro: somnolent. Objective Data Vital Signs Vital Signs: Vital Signs - 24 hr 08/09/21 18:00 08/09/21 18:15 08/09/21 20:00 Temperature 96.2 F L Pulse Rate 104 H 104 H 102 H Respiratory Rate 19 Blood Pressure 162/118 H 167/131 H Pulse Oximetry 97 08/09/21 20:37 08/09/21 22:00 08/10/21 00:00 Temperature 97.3 F L Pulse Rate 105 H 92 93 Respiratory Rate 23 H Blood Pressure 157/110 H Pulse Oximetry 96 08/10/21 02:00 08/10/21 04:00 08/10/21 06:00 Temperature 98.7 F Pulse Rate 93 96 94 Respiratory Rate 22 H Blood Pressure 153/111 H Pulse Oximetry 98 08/10/21 08:00 08/10/21 08:21 08/10/21 09:45 Temperature 96.7 F L Pulse Rate 100 100 159 H Respiratory Rate 15 18 Blood Pressure 156/122 H 146/90 H Pulse Oximetry 97 97 08/10/21 09:59 08/10/21 10:0
[2021-08-10] MEDS: carvediloL 6.25 MG TABLET PO (20:00)
--- NOTE | 2021-08-10 20:39 | PC.NURSE ---
Addendum entered by Alexander Lee RN 08/10/21 20:54: Meant 2019, 2037, 2040 and 2043 Original Note: 0820-Attempt to transfer pt to [facility]-2. When we get to the room there is already a pt there in bed 1. Omar is refusing to have a roommate. Called [facility] Sherrell, she said that is the only IMU room available and they will try to get him another room soon. Omar refused to even go in the room. Called Sherrell back and she said to call Cardiology to see if pt can be downgraded to Med tele. [phone]-Paged Dr. Monte [phone]- Dr Monte returned call, ok to downgrade to Med Tele [phone]- Called Dr. Fuentes, ok to downgrade to Med Tele
--- NOTE | 2021-08-10 21:35 | PC.NURSE ---
This patient, Omar Barahona, was transferred to [ 256] on 08/10/21 at 2135. Personal belongings sent with patient. Report given to [ RN]. Appropriate documentation sent with patient.
--- NOTE | 2021-08-10 22:11 | PC.NURSE ---
At 2140 transferred from center to room 256 per w/c. IV intact. Applied tele. Orientated to room.
[2021-08-11] VITALS (19 sets, daily range): BP systolic 125–142; BP diastolic 81–97; PULSE 79–143; RESP 16–24; TEMP 36.3–36.7; O2SAT 95–100
--- NOTE | 2021-08-11 02:03 | PC.NURSE ---
Pt heart rate increased to 140's. Sinus tach. Pt was sleeping. Woke him up and he is asymptomatic at this time. After a couple of minutes his heart rate went back down to 80-85 Normal sinus rhythm. Notified nursing tea and spice supervisor Sri Palomo RN
[2021-08-11] MEDS: METOPROLOL TARTRATE INJ 5 MG/5 ML VIAL IV PUSH ×4 (04:40→11:30)
[2021-08-11 05:27] LABS: Hematocrit 55.4 % (42.0-52.0); Hemoglobin 18.8 g/dL (14.0-18.0); Mean Corpuscular HGB Conc 33.9 g/dl (32-36); Mean Corpuscular Hemoglobin 30.2 pg (26-34); Mean Corpuscular Volume 89.1 fl (80-100); Mean Platelet Volume 10.5 fl (7.4-10.4); Platelet Count Result 312 k/mm3 (150-375); Red Blood Count 6.22 M/mm3 (4.6-6.20); Red Cell Distribution Width 13.3 % (11.5-14.5); White Blood Count 12.1 K/mm3 (4.5-10.0)
[2021-08-11 05:36] LABS: Anion Gap 10 mmol/L (8-16); Blood Urea Nitrogen 25 mg/dL (9-20); Calcium 9.5 mg/dL (8.4-10.2); Carbon Dioxide 23 mmol/L (22-30); Chloride 102 mmol/L (98-107); Estimated CRCL calculation 109 ml/min; Estimated Glomerular Filt Rate > 60; Glucose 145 mg/dL (65-110); Potassium 4.3 mmol/L (3.4-5.0); Sodium 135 mmol/L (137-145)
[2021-08-11] MEDS: FUROSEMIDE INJ 40 MG/4 ML VIAL 20 MG IV PUSH (11:10)
[2021-08-11] MEDS: carvediloL 6.25 MG TABLET PO (11:10)
[2021-08-11] MEDS: SPIRONOLACTONE 25 MG TABLET PO (11:11)
[2021-08-11] MEDS: AMIODARONE HCL 200 MG TABLET 600 MG PO (11:11)
[2021-08-11] MEDS: SACUBITRIL/VALSARTAN 24-26 MG TABLET 1 TAB PO (11:11)
--- NOTE | 2021-08-11 11:27 | PM.PNCARD ---
Progress Note: A&P Assessment and Plan (1) Congestive heart failure due to cardiomyopathy: Code(s): I50.9 - Heart failure, unspecified; I42.9 - Cardiomyopathy, unspecified Status: Acute Assessment and Plan: Presenting with symptoms of shortness of breath, lower extremity swelling. Chest Xray showed enlarged cardiac silhouette, cardiomegaly vs. pericardial effusion. NT-proBNP elevated at 6160. He has been diuresed with IV lasix and has experienced improvement in symptoms. Severe dilated cardiomyopathy with an EF of 15-20%, grade 3 diastolic dysfunction. He has right ventricular dysfunction as well. Continue Entresto 24/ b.i.d. Continue spironolactone 25 mg daily Increase carvedilol to 12.5 mg b.i.d.. Transition from furosemide 40 mg p.o. b.i.d. to 20 mg qd. Monitor renal function and electrolytes with daily BMP. Goals K 4.0, Mg 2.0 LifeVest is on pt; no questions about it's use. Recurrence of SVT vs flutter.. (2) Supraventricular arrhythmia: Code(s): I49.9 - Cardiac arrhythmia, unspecified Status: Acute Assessment and Plan: Patient has been having frequent episodes of a narrow complex tachyarrhythmia which is either an AV lauri reentry tachycardia versus an atrial flutter. The sudden onset and offset favors a former, but the rate of 150 favors the latter. Worse case scenario is that this is atrial flutter and he would be at risk of cardioembolic events, (CHADS2 Vasc score is 2--but has elevated blood sugar so may be diabetic or pre-diabetic which increases risk) thus he should be anticoagulated. I recommended we transfer him to IMU so we can give Adenocard and determine if this is an atrial flutter or PSVT. He also needs overall control of the tachyarrhythmia to prevent CHF exacerbation, particularly since he is unaware when he is in it. However the patient is insisting on leaving. I reiterated that this tachyarrhythmia can be dangerous for his heart an exacerbate his heart disease and cause bad outcomes such as CHF, need for ER visits and dying. I strongly recommended that he stay for treatment. It would be against my medical advice if the left at this time. However he does want to leave at this time. Advised the patient to return to the ER should he develop shortness of breath, exacerbation of failure, chest pain, swelling, dizziness etc.. Discussed follow-up in our office for ongoing cardiology care. My office will call him early this week to arrange for follow-up. Discussed with Dr. Robert who also spoke to the patient and patient desires to be discharged. I am leaving samples of Entresto and Xarelto as we do not know if his insurance will cover these medications. (3) Hypertension: Qualifiers: Hypertension type: unspecified Qualified Code(s): I10 - Essential (primary) hypertension Code(s): I10 - Essential (primary) hypertension Status: Acute Assessment and Plan: Improving. (4) Anxiety: Code(s): F41.9 - Anxiety disorder, unspecified Status: Acute Assessment and Plan: Patient expresses a lot of anxiety, frustration and irritation. (5) Methamphetamine use: Code(s): F15.10 - Other stimulant abuse, uncomplicated Status: Acute Assessment and Plan: He was counseled on avoidance of amphetamines and other illicit drugs. He states that he is going to remain abstinent from drugs and alcohol. (6) Elevated blood sugar: Code(s): R73.9 - Hyperglycemia, unspecified Status: Acute Assessment and Plan: may be diabetic or prediabetic. Subjective Date/time seen: 08/11/21 11:27 Interval history: FU for new onset CHF and cardiomyopathy. Date of service 08/11/2021: Last pm the pt was transferred from the chest Pain Center. He was going to the IMU but there were no single rooms and patient apparently expressed that he would leave if he could not have a single room, so h
--- NOTE | 2021-08-11 14:17 | PM.DS ---
DS: Admitting Diagnosis Discharge Date Chief Complaint: Shortness of breath Admitting Diagnosis Chief Complaint: Shortness of breath DS: Discharge Diagnosis Discharge Diagnosis (1) Congestive heart failure of unknown etiology: Code(s): I50.9 - Heart failure, unspecified Status: Acute Assessment and Plan: Admit to chest pain center Echocardiogram in the morning Rule out [place] with serial troponins Cardiology consult Aggressive diuresis Monitor intake and output 08/10/21 16:53 08/09 Interval history: patient is a 36-year-old male with history of alcohol abuse and amphetamine presented emergency depart with complaint of shortness of breath and chest apin and was found to have BNP of 6,160 patient is seen by Cardiology had a echo showed severe reduced ejection fraction of 20%, started the patient on Entresto, spironolactone and Coreg patient also been diuresed with IV Lasix, patient will need LifeVest upon discharge, patient is positive for amphetamine and was quite agitated and is given Ativan and currently somnolent unable to provide any review of symptom, once clinically stable will have a PT OT evaluate the patient and further recommendation to follow. 08/10 Interval history: no today patient is more awake however is crying and wants to go home, patient and several episodes Vtech, patient was seen by Cardiology was treated with Lopressor and was decided to monitor the patient overnight, LifeVest has been ordered however patient insurance company has denied, will continue to monitor patient over night and further recommendations follow (2) Methamphetamine use: Code(s): F15.10 - Other stimulant abuse, uncomplicated Status: Acute Assessment and Plan: Patient has been advised about substance use cessation He has expressed understanding Supportive care DS: Summary Hospital Course Reason for hospitalization: Chief Complaint: Shortness of breath Narrative: This is a 36-year-old male with no significant past medical history former smoker, former alcohol abuse, uses methamphetamines, patient presented to the emergency room due to swelling of his feet shortness of breath and dry cough PND and orthopnea for the last week and such however he denies any chest pain ,any dizziness, any nausea ,any vomiting, any abdominal pain ,any pounding of the chest, no fevers no rigors no chills no sputum production. Preliminary workup was significant for a brain natriuretic peptide up beltran 6000, a positive urine tox for amphetamines a chest x-ray with enlarged cardiac silhouette and and ECG with changes but no previous for comparison. Patient has been placed in observation for further evaluation and treatment. Hospital Course: Left AMA 08/10/21 16:53 08/09 Interval history: patient is a 36-year-old male with history of alcohol abuse and amphetamine presented emergency depart with complaint of shortness of breath and chest apin and was found to have BNP of 6,160 patient is seen by Cardiology had a echo showed severe reduced ejection fraction of 20%, started the patient on Entresto, spironolactone and Coreg patient also been diuresed with IV Lasix, patient will need LifeVest upon discharge, patient is positive for amphetamine and was quite agitated and is given Ativan and currently somnolent unable to provide any review of symptom, once clinically stable will have a PT OT evaluate the patient and further recommendation to follow. 08/10 Interval history: no today patient is more awake however is crying and wants to go home, patient and several episodes Vtech, patient was seen by Cardiology was treated with Lopressor and was decided to monitor the patient overnight, LifeVest has been ordered however patient insurance company has denied, will continue to monitor patient over night and further recommendations follow Time Spent with Patient Time attestation: Total time spent providing and/or coordinating discharge services: Exam Narrativ
--- NOTE | 2021-08-11 15:30 | PC.NURSE ---
Pt requesting discharge, claiming the doctor isn't doing anything. Pt is wearing a cario Life vest & Dr Monte provided him with free samples of Entresto & Eliquis. Pt standing in the lobby, says he is going to go somewhere else where someone will help him, that That doctor can go fuck herself. The nurse and tech escorted patient to the emergency room as he walked out.
--- NOTE | 2021-08-11 15:38 | PC.NURSE ---
patient educated regarding his condition and the care he needs, decided to still leave AMA. Medication instructions given, physician aware.
== END 2021-08-11 15:30 | disposition left against medical advice (07) | DRG 291 ==
LOC: ANHED 22:14 → ANHCPC 08-09 12:06 → ANH2MED 08-11 15:28 → ANHCPC 08-14 13:14
PROVIDERS: Admitting Provider Internal Medicine; Emergency Provider Emergency Medicine; Visit Provider Family Medicine
DX: I11.0 Hypertensive heart disease with heart failure (principal); I50.21 Acute systolic (congestive) heart failure; I25.5 Ischemic cardiomyopathy; F15.10 Other stimulant abuse, uncomplicated; F41.9 Anxiety disorder, unspecified; R73.9 Hyperglycemia, unspecified; I49.9 Cardiac arrhythmia, unspecified; Z87.891 Personal history of nicotine dependence
CPT/HCPCS: 36415; 71046; 80048; 80076; 80307; 81001; 83735; 83880; 84100; 84443; 84484; 85025; 85027; 85610; 85652; 85730; 86140; 93005; 96374; 99285; A9270; C8929; J0131; J1200; J1940; J2060; J2270; Q9957

== ENCOUNTER 2021-10-23 10:39 | Outpatient (RCR) | payer BC, SELFPAY | END 2022-01-07 13:12 | disposition home or self-care (01) | LOC: ANHDMC 10:39 | PROVIDERS: PCP Emergency Medicine | DX: E11.65 Type 2 diabetes mellitus with hyperglycemia (principal) | CPT/HCPCS: 99199 ==

== ENCOUNTER 2021-11-21 10:02 | Emergency (ER) | payer BC, SELFPAY ==
--- NOTE | 2021-11-21 10:15 | ED.URI ---
HPI - URI/Sore Throat General Chief Complaint: Upper Respiratory Infection Stated Complaint: Fever, body aches, vomiting Time Seen by Provider: 11/21/21 10:23 Source: patient Mode of arrival: ambulatory Limitations: no limitations History of Present Illness HPI Narrative: 36-year-old male presenting for complaint of headache, body aches, sinus pressure/congestion, nausea, fever/chills. Sx onset yesterday. Fever 103 at home. Endorses covid exposure about 1 week ago. Denies cough, sob, wheezing. Hx CHF, DM. Not vaccinated for covid. MD elicited complaint: cough Related Data Home Medications Medication Instructions Recorded Confirmed atorvastatin 11/21/21 carvedilol 11/21/21 dapagliflozin [Farxiga] mg 11/21/21 fenofibrate micronized mg PO 11/21/21 furosemide 11/21/21 metformin mg PO 11/21/21 rivaroxaban [Xarelto] mg 11/21/21 sacubitril-valsartan [Entresto] 11/21/21 spironolactone 11/21/21 zolpidem 11/21/21 Allergies Allergy/AdvReac Type Severity Reaction Status Date / Time No Known Allergies Allergy Verified 08/09/21 01:20 Review of Systems Review of Systems: CONSTITUTIONAL: Endorses malaise, chills, sweats, fever. EYES: Denies visual changes, redness, or discharge. ENT: Reports rhinorrhea denies congestion, sinus pain, otalgia and sore throat. CARDIOVASCULAR: Denies chest pain, palpitations, or edema. RESPIRATORY: denies cough, post nasal drainage dyspnea. GASTROINTESTINAL: Denies abdominal pain, diarrhea; endorses nausea, vomiting SKIN: Denies rash or itching. MUSCULOSKELETAL: endorses myalgia. NEUROLOGIC: endorses headache. [facility] Past Medical History Medical History No significant medical problems Supraventricular arrhythmia Surgical History Surgical History No history of previous surgery Social History Social History Smoking status: Never smoker Alcohol intake: former Alcohol use details: Patient states he was a ?heavy drinker? for many years. He states that he drank heavily from age [age]. He says that he is abstained from alcohol for 3 years. Substance use: current Substance use type: amphetamines Other substance usage details: Pt states he doesnt have a problem , tox screen positive for amphetamines Gender identity (if verbalized by the patient): Male Spiritual care concerns: No Exam Narrative: GENERAL: Ill-appearing, nontoxic no acute distress. HEAD: Normocephalic EYES: PERRLA, conjunctivae clear ENT: Mucous membranes moist. TM pearly brown with dull light reflex bilaterally; no tragal tenderness. Oropharynx erythematous without lesions. Tonsils enlarged and without exudate, no drooling, no hoarseness, no trismus, uvula midline. NECK: Supple. No lymphadenopathy CHEST: Clear to auscultation, breath sounds equal. No wheezing, rhonchi, rales, or stridor. No respiratory distress, speaks in full sentences. HEART: Regular rate and rhythm. No murmur heard. SKIN: Warm, dry, no rash. NEURO: Alert and oriented x3. PSYCH: Normal mood and affect Course Course Emergency Course: covid neg we discussed risk of false negative test and plan for quarantine until sx improve. Patient is aware of diagnosis, understands and agrees to treatment plan. Anticipatory guidance given. Patient agrees to follow-up as directed and is aware of reasons to seek care at the emergency department. Portions of this record may have been created with voice recognition software Level of Care: Express Care Visit Vital Signs Vital signs: Vital Signs Temperature 99.2 F 11/21/21 10:17 Pulse Rate 93 11/21/21 10:17 Respiratory Rate 18 11/21/21 10:17 Blood Pressure 89/56 L 11/21/21 10:17 Pulse Oximetry 99 11/21/21 10:17 Temperature 99.2 F 11/21/21 10:18 Pulse Rate 93 11/21/21 10:18 Respiratory Rate 18
[2021-11-21 10:17] VITALS: BP 89/56; PULSE 93; RESP 18; TEMP 37.3; O2SAT 99
[2021-11-21 10:18] VITALS: BP 89/56; PULSE 93; RESP 18; TEMP 37.3; O2SAT 99
== END 2021-11-21 10:45 | disposition home or self-care (01) ==
PROVIDERS: Emergency Provider Nurse Practitioner Family
DX: B34.9 Viral infection, unspecified (principal); Z20.822 Contact with and (suspected) exposure to COVID-19; I50.9 Heart failure, unspecified; E11.9 Type 2 diabetes mellitus without complications
CPT/HCPCS: 87426; 99213; C9803; G0463

== ENCOUNTER 2024-09-01 09:30 | Outpatient (RCR) | payer OTHER, SELFPAY ==
[2024-08-04 13:20] VITALS: BMI 28.4
[2024-08-04 13:24] VITALS: BMI 28.4
== END 2024-10-25 09:31 | disposition home or self-care (01) ==
LOC: ANHDMC 09:30
PROVIDERS: PCP Emergency Medicine; Visit Provider Emergency Medicine
DX: E13.65 Other specified diabetes mellitus with hyperglycemia (principal); Z71.89 Other specified counseling; Z71.3 Dietary counseling and surveillance
CPT/HCPCS: 97802

== ENCOUNTER 2025-05-03 13:29 | Outpatient (CLI) | payer OTHER, SELFPAY ==
--- NOTE | 2025-05-03 13:43 | ECHO_ITS ---
Patient Info Name: Omar Barahona Age: 39 years : 1985 Gender: Male Ht: 75 in Wt: 240 lbs BSA: 2.42 m2 HR: 74 bpm BP: 136 / 90 mmHg Heart Rhythm: Sinus Rhythm Technical Quality: Good Exam Date: 05/03/2025 1:48 PM Patient Status: O Admit Date: 05/03/2025 Exam Type: CA echo doppler color flow Complete two-dimensional, color flow and Doppler transthoracic echocardiogram is performed. Reactor Kettle Operator: Carli Cheney Attending Provider: Thien Malik DO Summary 1. Complete two-dimensional, color flow and Doppler transthoracic echocardiogram is performed. 2. Left ventricular chamber dimension is normal. 3. Left ventricular systolic function is normal, estimated at 60-65. 4. The left ventricular diastolic function is grade II diastolic dysfunction. 5. E/e' 12 is mildly elevated. 6. No pulmonary hypertension, estimated pulmonary arterial systolic pressure is 24 mmHg. Left Ventricle E/e' 12 is mildly elevated. Left ventricular chamber dimension is normal. Left ventricular systolic function is normal, estimated at 60-65. The left ventricular diastolic function is grade II diastolic dysfunction. Right Ventricle Right ventricular chamber dimension is normal. Right ventricular systolic function is normal and with normal TAPSE 2.5 cm. Left Atria Left atrial chamber dimension is normal. Right Atria Right atrial chamber dimension is normal. Aortic Valve The aortic valve is trileaflet. There is no aortic valve stenosis. There is no aortic valve regurgitation. Pulmonic Valve There is no pulmonic regurgitation. Mitral Valve There is no mitral valve stenosis. There is no mitral valve regurgitation. Tricuspid Valve There is no tricuspid valve regurgitation. No pulmonary hypertension, estimated pulmonary arterial systolic pressure is 24 mmHg. Pericardium/Pleural There is no pericardial effusion. Inferior Vena Cava Normal inferior vena cava with >50% collapse upon inspiration consistent with normal right atrial pressure, 5 mmHg. Aorta The aortic root size at the sinus of Valsalva is normal. Left Ventricular Outflow Tract Name Value Normal LVOT 2D LVOT Diameter 2.2 cm LVOT Doppler LVOT Peak Velocity 100 cm/s LVOT Peak Gradient 4 mmHg LVOT Mean Gradient 2 mmHg LVOT VTI 17 cm LVOT VTI/AV VTI Ratio 0.7 LVOT Stroke Volume 65 ml LVOT CO 4.7 l/min LVOT CI 1.9 l/min/m2 Pulmonic Valve Name Value Normal RVOT Doppler RVOT Peak Velocity 69 cm/s RVOT Peak Gradient 2 mmHg PV Doppler PV Peak Velocity 102 cm/s PV Peak Gradient 4 mmHg Mitral Valve Name Value Normal MV Diastolic Function MV E Peak Velocity 95 cm/s MV A Peak Velocity 78 cm/s MV E/A 1.2 MV Decel Time (PW) 220 ms MV Annular TDI MV E/e' (Septal) 13.3 MV E/e' (Lateral) 12.5 MV E/e' (Average) 12.9 Tricuspid Valve Name Value Normal TV Regurgitation Doppler TR Peak Velocity 218 cm/s TR Peak Gradient 19 mmHg Estimated PAP/RSVP RA Pressure 5 mmHg <=5 PA Systolic Pressure 24 mmHg <36 RV Systolic Pressure 24 mmHg <36 TV Annular TDI TV Lateral Jeaneth s' Velocity 15.7 cm/s >=9.5 Aorta Name Value Normal Ascending Aorta Ao Root Diameter (MM) 3.3 cm Ao Root Diam Index (MM) 1.3 cm/m2 Aortic Valve Name Value Normal AV Doppler AV Peak Velocity 153 cm/s AV Peak Gradient 9 mmHg AV Mean Gradient 5 mmHg AV VTI 25 cm AV Area (Cont Eq VTI) 2.6 cm2 >=3.0 AV Area (Cont Eq Paul) 2.5 cm2 AV DI (Paul) 0.65 AV Regurgitation 2D LVOT Area 3.9 cm2 Ventricles Name Value Normal LV Dimensions 2D/MM IVS Diastolic Thickness (2D) 1.0 cm 0.6-1.0 LVID Diastole (2D) 4.9 cm 4.2-5.8 LVIW Diastolic Thickness (2D) 1.0 cm 0.6-1.0 LVID Systole (2D) 3.5 cm 2.5-4.0 LVOT Diameter 2.2 cm LV Mass (2D Cubed) 174.39 g 88.00-224.00 LV Mass Index (2D Cubed) 72 g/m2 49-115 Relative Wall Thickness (2D) 0.39 <=0.42 LV Fractional Shortening/Ejection Fraction 2D/MM LV Fractional Shortening (2D) 29 % 25-43 LV EF (2D Teichtejinderz) 55 % LV Diastolic Volume (4C MOD) 124 ml LV EF (4C MOD) 57 % LV Diastolic Volume (2C MOD) 121 ml LV EF (2C MOD) 57 % LV Diastolic Volume (BP MOD) 123 ml 62-150 LV Diastolic Volume Index (BP MOD) 51 ml/m2 34-74 LV Systolic Volume (BP MOD) 53 ml 21-61 LV Systolic Volume Index (BP MOD) 22 ml/m2 11-31 LV EF (BP MOD) 57 % 52-72 LV Diastolic Length (4C) 8.3 cm LV Systolic Length (4C) 7.1 cm LV Stroke Volume (4C MOD) 70 ml Atria Name Value Normal LA Dimensions LA Dimension (MM) 4.5 cm 3.0-4.0 LA Volume (4C A-L) 57 ml LA Volume (BP A-L) 60 ml RA Dimensions RA Area (4C) 17.0 cm2 <=18.0 Report Signatures
== END 2025-05-03 13:30 | disposition home or self-care (01) ==
LOC: ANHCARD 13:33
PROVIDERS: PCP Emergency Medicine; Visit Provider Internal Medicine Cardiovascular Disease
DX: I51.89 Other ill-defined heart diseases (principal)
CPT/HCPCS: 93306